=== PATIENT | female | born 1950 | race Caucasian/White ===

== ENCOUNTER → 2016-05-12 | Outpatient (CLI) | payer MEDICARE, MEDICAID ==
[~2016-05-12] MED LIST: ALEVE 220MG220 MG PO; ASPIRIN 81M81 MG/TA2 PO; CALCIUM 600 PLU1 TAB PO; CHANTIX START M1 TAB PO; FE-TABS325 MG PO; FLAX SEED OIL1000 MG PO; FOLIC ACID0.4 MG PO; LEVAQUIN 5500 MG/TA1 PO; LIPITOR 40MG TA40 MG PO; NORVIR PO; PLAVIX 75MG TAB75 MG PO; PRINIVIL5 MG PO; PROZAC 20MG20 MG PO; REYATAZ PO; STRIBILD1 TAB PO; TOPROL XL 25MG25 MG PO; TRUVADA PO; ULTRAM50 MG PO; VITAMIN C PURE500 MG PO
[2016-05-12 12:16] LABS: HEMATOCRIT 41.4 % (37.0-47.0); HEMOGLOBIN 13.6 g/dl (12.5-16.0); MEAN CELL VOLUME 99 fl (80.0-100.0); MEAN CORPUSCULAR HEMOGLOBIN 33 pg (27.0-31.0); MEAN CORPUSCULAR HGB CONC 33 g/dl (33.0-37.0); MEAN PLATELET VOLUME 9.3 fl (7.4-10.4); PLATELET COUNT 260 K/mm3 (130-400); RED BLOOD COUNT 4.18 M/mm3 (4.10-5.30); REDCELL DISTRIBUTION WIDTH-CV 14.5 % (11.5-14.5); WHITE BLOOD COUNT 7.7 K/mm3 (4.8-10.8)
[2016-05-12 12:41] LABS: ERYTHROCYTE SEDIMENTATION RATE 4 mm/hr (0-30)
== END ==
LOC: COL.LAB 11:19
PROVIDERS: Orthopaedic Surgery
DX: M25.551 Pain in right hip (principal); Z98.890 Other specified postprocedural states

== ENCOUNTER 2016-07-21 08:10 | Observation (INO) | payer MEDICARE, MEDICAID ==
[2016-07-21] VITALS (645 sets, daily range): BP systolic 102–121; BP diastolic 62–72; PULSE 95–109; TEMP 97.7–98.3; O2SAT 68–100
[~2016-07-21] VITALS: Ht 167.6 cm; Wt 67.8 kg
[~2016-07-21 08:10] MED LIST changes: -ASPIRIN 81M81 MG/TA2 PO; -CALCIUM 600 PLU1 TAB PO; -LIPITOR 40MG TA40 MG PO; -PLAVIX 75MG TAB75 MG PO; -STRIBILD1 TAB PO; -TOPROL XL 25MG25 MG PO
[2016-07-21 08:52] LABS: BASO % 0.2 % (0.0-2.0); EOS # 0.1 (0.0-0.7); EOS % 0.6 % (0-4.0); GRAN # 6.4 (1.4-6.5); GRAN % 75.6 % (42.2-75.2); HEMATOCRIT 41.8 % (37.0-47.0); HEMOGLOBIN 13.6 g/dl (12.5-16.0); LYMPH # 1.3 (1.2-3.4); LYMPH % 15.1 % (20.0-51.0); MEAN CELL VOLUME 100 fl (80.0-100.0); MEAN CORPUSCULAR HEMOGLOBIN 32 pg (27.0-31.0); MEAN CORPUSCULAR HGB CONC 33 g/dl (33.0-37.0); MEAN PLATELET VOLUME 9.6 fl (7.4-10.4); MONO # 0.7 (0.1-0.6); PLATELET COUNT 164 K/mm3 (130-400); REDCELL DISTRIBUTION WIDTH-CV 14.5 % (11.5-14.5); WHITE BLOOD COUNT 8.4 K/mm3 (4.8-10.8)
[2016-07-21 08:55] LABS: ADJUSTED CALCIUM 9.1 mg/dL (8.4-10.2); ALBUMIN 4.3 gm/dL (3.5-5.0); BILIRUBIN,TOTAL 0.8 mg/dL (0.0-1.0); C-REACTIVE PROTEIN 0.9 mg/dL (0.0-0.9); CALCIUM 9.3 mg/dL (8.4-10.2); CREATININE, serum 1.75 mg/dL (0.52-1.25); POTASSIUM 3.9 mmol/L (3.4-5.0); TOTAL PROTEIN 7.5 gm/dL (6.4-8.2)
[2016-07-21 09:06] LABS: TROPONIN-I 0.102 ng/mL (0.000-0.034)
[2016-07-21 09:41] LABS: INR 1.1 (0.8-3.0)
[2016-07-21 09:44] LABS: PARTIAL THROMBOPLASTIN TIME 30.3 SECONDS (26.0-37.0)
[2016-07-21] MEDS ORDERED: STRIBILD1 TAB PO (12:35)
[2016-07-21] MEDS ORDERED: CALCIUM 600 PLU1 TAB PO (12:35)
[2016-07-21 17:29] LABS: CALCIUM 8.5 mg/dL (8.4-10.2); CREATININE, serum 1.48 mg/dL (0.52-1.25); POTASSIUM 3.8 mmol/L (3.4-5.0)
[2016-07-22] VITALS (512 sets, daily range): BP systolic 99–122; BP diastolic 54–74; PULSE 81–98; TEMP 97.1–98.7; O2SAT 72–100
[2016-07-22 06:49] LABS: TROPONIN-I 0.353 ng/mL (0.000-0.034)
[2016-07-22 08:54] LABS: ADJUSTED CALCIUM 9.2 mg/dL (8.4-10.2); ALBUMIN 3.6 gm/dL (3.5-5.0); BILIRUBIN,TOTAL 0.7 mg/dL (0.0-1.0); CALCIUM 8.9 mg/dL (8.4-10.2); CREATININE, serum 1.68 mg/dL (0.52-1.25); TOTAL PROTEIN 6.7 gm/dL (6.4-8.2)
[2016-07-22] MEDS ORDERED: PLAVIX 75MG TAB75 MG PO (11:48)
[2016-07-22] MEDS ORDERED: LIPITOR 40MG TA40 MG PO (11:48)
[2016-07-22] MEDS ORDERED: TOPROL XL 25MG25 MG PO (11:49)
[2016-07-22] MEDS ORDERED: ASPIRIN 81M81 MG/TA2 PO (11:50)
== END 2016-07-22 12:50 | disposition home or self-care (01) ==
LOC: COL.ER 08:10 → ICU 09:57 → IMCU 07-22 07:32
PROVIDERS: Emergency Medicine
DX: R07.89 Other chest pain (principal); I25.10 Atherosclerotic heart disease of native coronary artery without angina pectoris; I27.2 Other secondary pulmonary hypertension; R94.4 Abnormal results of kidney function studies; J43.9 Emphysema, unspecified; I07.1 Rheumatic tricuspid insufficiency; B20 Human immunodeficiency virus [HIV] disease; F17.210 Nicotine dependence, cigarettes, uncomplicated; D68.2 Hereditary deficiency of other clotting factors; Z86.711 Personal history of pulmonary embolism; Z86.718 Personal history of other venous thrombosis and embolism
CPT/HCPCS: 99222-AI; 99232-AI; 99239; G0378; J1650; J7030

== ENCOUNTER → 2016-11-08 | Outpatient (CLI) | payer MEDICARE, MEDICAID ==
[~2016-11-08] MED LIST changes: +ASPIRIN 81M81 MG/TA2 PO; +CALCIUM 600 PLU1 TAB PO; +LIPITOR 40MG TA40 MG PO; +PLAVIX 75MG TAB75 MG PO; +STRIBILD1 TAB PO; +TOPROL XL 25MG25 MG PO
[2016-11-08 15:45] LABS: HEMATOCRIT 38.7 % (37.0-47.0); HEMOGLOBIN 12.5 g/dl (12.5-16.0); MEAN CELL VOLUME 100 fl (80.0-100.0); MEAN CORPUSCULAR HEMOGLOBIN 32 pg (27.0-31.0); MEAN CORPUSCULAR HGB CONC 32 g/dl (33.0-37.0); MEAN PLATELET VOLUME 9.4 fl (7.4-10.4); PLATELET COUNT 253 K/mm3 (130-400); RED BLOOD COUNT 3.87 M/mm3 (4.10-5.30); REDCELL DISTRIBUTION WIDTH-CV 14.7 % (11.5-14.5); WHITE BLOOD COUNT 9.8 K/mm3 (4.8-10.8)
[2016-11-08 15:51] LABS: CALCIUM 9.1 mg/dL (8.4-10.2); CREATININE, serum 1.76 mg/dL (0.52-1.25); POTASSIUM 4.2 mmol/L (3.4-5.0)
== END ==
LOC: COL.LAB 15:21
PROVIDERS: Internal Medicine Interventional Cardiology
DX: R60.0 Localized edema (principal)

== ENCOUNTER 2017-06-16 09:59 | Emergency (ER) | payer MEDICARE, MEDICAID ==
[~2017-06-16] VITALS: Ht 167.6 cm; Wt 65.9 kg
[2017-06-16] MEDS ORDERED: PRADAXA 150MG150 MG PO (10:26)
[2017-06-16] MEDS ORDERED: CRESTOR 10MG10 MG PO (10:27)
[2017-06-16] MEDS ORDERED: ULTRAM 50MG TAB50 MG PO (11:10)
[2017-06-16] MEDS ORDERED: MEDROL 4MG DOSPA4 MG PO (11:10)
[2017-06-16 11:58] VITALS: BP 111/62; PULSE 46; TEMP 98.3
== END 2017-06-16 12:00 | disposition home or self-care (01) ==
LOC: COL.ER 09:59
DX: M54.10 Radiculopathy, site unspecified (principal); F17.210 Nicotine dependence, cigarettes, uncomplicated; Z86.711 Personal history of pulmonary embolism; Z86.718 Personal history of other venous thrombosis and embolism; Z95.820 Peripheral vascular angioplasty status with implants and grafts; Z90.710 Acquired absence of both cervix and uterus; Z96.641 Presence of right artificial hip joint; Z79.82 Long term (current) use of aspirin; Z79.01 Long term (current) use of anticoagulants
CPT/HCPCS: J7512

== ENCOUNTER → 2020-01-14 | Outpatient (CLI) | payer MEDICARE, MEDICAID ==
[~2020-01-14] MED LIST changes: +CRESTOR 10MG10 MG PO; +MEDROL 4MG DOSPA4 MG PO; +PRADAXA 150MG150 MG PO; +ULTRAM 50MG TAB50 MG PO
[2020-01-14 13:22] LABS: TROPONIN-I < 0.012 ng/mL (0.000-0.035)
== END ==
LOC: ZCOL.LAB 11:30
PROVIDERS: Internal Medicine Interventional Cardiology
DX: R07.89 Other chest pain (principal)

== ENCOUNTER 2020-10-07 17:02 | Day surgery (SDC) | payer MEDICARE, MEDICAID ==
[2020-10-07 17:51] VITALS: BP 119/63; PULSE 80; TEMP 98.4
[2020-10-07 18:32] LABS: CALCIUM 9.8 mg/dL (8.4-10.2); CREATININE, serum 1.79 (0.52-1.25); POTASSIUM 3.9 mmol/L (3.4-5.0)
[2020-10-07] MEDS ORDERED: ZESTRIL2.5 MG PO (18:55)
[2020-10-07] MEDS ORDERED: FOSAMAX 70MG TA70 MG PO (18:56)
[2020-10-07] MEDS ORDERED: ELIQUIS 2.5 PO (18:56)
[2020-10-07] MEDS ORDERED: SODIUM BICARBO650 MG PO (18:57)
[2020-10-07] MEDS ORDERED: STRIBILD1 TAB PO (18:58)
[2020-10-07] MEDS ORDERED: ONE-A-DAY ESSE1 EACH PO (18:59)
--- NOTE | 2020-10-07 19:02 | NUR ---
Admission assessment completed, alert/oriented, vital sign stsable, denies pain, heart RRR, cardiology orders being placed in computer, meds/allergies/pharmacuy reviewed, IV started to left wrist, family present in the room
[2020-10-07 19:20] VITALS: BP 121/58; PULSE 61; TEMP 98.4
[2020-10-07 23:25] VITALS: BP 92/75; PULSE 62; TEMP 97.9
[2020-10-08] VITALS (9 sets, daily range): BP systolic 98–122; BP diastolic 54–59; PULSE 51–81; TEMP 97.8–98.2
[2020-10-08 06:09] LABS: HEMATOCRIT 37.5 % (37.0-47.0); HEMOGLOBIN 12.2 g/dl (12.5-16.0); MEAN CELL VOLUME 99 fl (80.0-100.0); MEAN CORPUSCULAR HEMOGLOBIN 32 pg (27.0-31.0); MEAN CORPUSCULAR HGB CONC 33 g/dl (33.0-37.0); MEAN PLATELET VOLUME 9.9 fl (7.4-10.4); PLATELET COUNT 196 K/mm3 (130-400); RED BLOOD COUNT 3.78 M/mm3 (4.10-5.30); REDCELL DISTRIBUTION WIDTH-CV 13.7 % (11.5-14.5)
[2020-10-08 06:20] LABS: CALCIUM 9.1 mg/dL (8.4-10.2); CREATININE, serum 1.73 (0.52-1.25); POTASSIUM 4.2 mmol/L (3.4-5.0)
[2020-10-08 06:27] LABS: PROTHROMBIN TIME 11.4 SECONDS (9.7-12.8)
[2020-10-08 06:29] LABS: PARTIAL THROMBOPLASTIN TIME 28.4 SECONDS (26.0-37.0)
--- NOTE | 2020-10-08 07:00 | NUR ---
Report received from JAROCHO Ortiz. pT in bed, awake and alert, deneis needs, will contineu to monitor.
[2020-10-08] MEDS ORDERED: GENVOYA TABLET1 EACH PO (08:42)
--- NOTE | 2020-10-08 09:05 | NUR ---
Assessment charted. PT in bed resting, denies any chest pain, complete consent at this time, pt agreeable to plan. Called EDDIE Martel for RANP regarding home meds needing to be continued. IVF to LW. Will continue eduardo onitor.
[2020-10-08] MEDS ORDERED: LOPRESSOR 225 MG/TAB PO (11:26)
[2020-10-08] MEDS ORDERED: PRINIVIL2.5 MG PO (11:27)
--- NOTE | 2020-10-08 11:40 | NUR ---
This RN prepping pt for upcoming heart cath scheduled for 1230. This RN calling MD and speaking with MD's RN to notify that pt ready. MD currently unavailable. This RN requesting that MD call when ready for pt to be brought to labor gang supervisor for procedure. MD's RN states she will give this message to MD.
--- NOTE | 2020-10-08 13:22 | NUR ---
SEE MERGE DOCUMENTATION FOR MEDICATION ADMINISTRATION TIMES AND INTRA/POST PROCEDURE SEDATION ASSESSMENTS.
--- NOTE | 2020-10-08 14:00 | NUR ---
Heart cath complete. Order from MD for fluids to run at 100mL/hr for total of 500 mLs post procedure. Order also received for pt flat time to be 2hrs. Both orders read back and verified with the MD. These were relayed to JAROCHO Godoy on Medical.
--- NOTE | 2020-10-08 18:04 | NUR ---
Pt returned to floor at this time via bed with Rehab Manager staff. Resting flat in bed, instructed not to lift head at all and pt agreeable to plan. Ordered finger food per request. R groin access is soft and non-tender, CDI dressing, will continue to monitor.
[2020-10-08] MEDS ORDERED: ASPIRIN 81M81 MG/TA2 PO (18:09)
--- NOTE | 2020-10-08 18:45 | NUR ---
Discharge teaching completed at this time. PT received discharge packet, reviewed meds and follow ups. INT dc'd, tip intact. Reviewed packet, answered all questions. Pt left with all belongings, escorted out with medical staff, daughter to drive home, criteria met.
== END 2020-10-08 18:30 | disposition home or self-care (01) ==
LOC: SDCO 17:02 → MEDICAL 17:02 → COL.CAR 10-08 10:30 → EDSTATUS 10-08 10:30 → SDCO 10-08 18:30
PROVIDERS: Internal Medicine Interventional Cardiology
DX: R07.89 Other chest pain (principal); N18.30 Chronic kidney disease, stage 3 unspecified; I83.813 Varicose veins of bilateral lower extremities with pain; R94.39 Abnormal result of other cardiovascular function study; I87.1 Compression of vein; I26.99 Other pulmonary embolism without acute cor pulmonale; F17.210 Nicotine dependence, cigarettes, uncomplicated; Z79.899 Other long term (current) drug therapy; Z79.01 Long term (current) use of anticoagulants; Z86.718 Personal history of other venous thrombosis and embolism; Z80.9 Family history of malignant neoplasm, unspecified; Z90.710 Acquired absence of both cervix and uterus; Z79.891 Long term (current) use of opiate analgesic
CPT/HCPCS: OP; C1760; C1894; J1644; J1940; J2250; J3010; Q9967

== ENCOUNTER 2021-05-02 10:57 | Emergency (ER) | payer MEDICARE, MEDICAID ==
[~2021-05-02] VITALS: Ht 167.6 cm; Wt 72.7 kg
[~2021-05-02 10:57] MED LIST changes: +ELIQUIS 2.5 PO; +FOSAMAX 70MG TA70 MG PO; +GENVOYA TABLET1 EACH PO; +LOPRESSOR 225 MG/TAB PO; +ONE-A-DAY ESSE1 EACH PO; +PRINIVIL2.5 MG PO; +SODIUM BICARBO650 MG PO; +ZESTRIL2.5 MG PO
[2021-05-02 14:11] LABS: COLLECTION METHOD CLEAN CATCH
[2021-05-02 14:15] LABS: BASO % 0.3 % (0.0-2.0); GRAN % 76.7 % (42.2-75.2); LYMPH # 1.2 K/mm3 (1.2-3.4); LYMPH % 11.8 % (20.0-51.0); MEAN CELL VOLUME 96 fl (80.0-100.0); MEAN CORPUSCULAR HEMOGLOBIN 31 pg (27-31); MEAN CORPUSCULAR HGB CONC 33 g/dl (33.0-37.0); MEAN PLATELET VOLUME 10.8 fl (7.4-10.4); MONO # 1.1 K/mm3 (0.1-0.6); MONO % 10.9 % (1.7-9.3); PLATELET COUNT 143 K/mm3 (130-400); RED BLOOD COUNT 4.15 M/mm3 (4.10-5.30); REDCELL DISTRIBUTION WIDTH-CV 14.7 % (11.5-14.5)
[2021-05-02 14:18] LABS: MUCOUS Present (NOT PRESENT); PH 5 (5-8); SQUAMOUS EPITHELIAL 0-2 /hpf (0-10); URINE APPEARANCE Hazy (CLEAR/HAZY); URINE BACTERIA None Seen /hpf (NONE SEEN); URINE BILIRUBIN Negative (NEGATIVE); URINE BLOOD 1+ (NEGATIVE); URINE COLOR Yellow (YELLOW); URINE GLUCOSE 1+ (NEGATIVE); URINE KETONE Trace (NEGATIVE); URINE LEUKOCYTE ESTERASE Negative (NEGATIVE); URINE NITRATE Negative (NEGATIVE); URINE PROTEIN(semi-quant) 2+ (NEGATIVE); URINE UROBILINOGEN Negative (NEGATIVE)
[2021-05-02 14:29] LABS: ALBUMIN 3.7 gm/dL (3.4-4.8); BILIRUBIN,TOTAL 0.3 mg/dL (0.2-1.2); C-REACTIVE PROTEIN 9.7 mg/dL (0.00-0.50); CALCIUM 8.8 mg/dL (8.4-10.2); CREATININE, serum 1.92 mg/dL (0.57-1.11); POTASSIUM 3.7 mmol/L (3.5-4.5); TOTAL PROTEIN 7.6 gm/dL (6.2-8.1)
[2021-05-02] MEDS ORDERED: ZITHROMAX 250M250 MG PO (18:45)
[2021-05-02 19:30] VITALS: BP 128/69; PULSE 78; TEMP 98.3
== END 2021-05-02 19:30 | disposition home or self-care (01) ==
LOC: COL.ER 10:57
PROVIDERS: Nurse Practitioner
DX: J20.9 Acute bronchitis, unspecified (principal); R32 Unspecified urinary incontinence; I10 Essential (primary) hypertension; E78.5 Hyperlipidemia, unspecified; F17.210 Nicotine dependence, cigarettes, uncomplicated; Z79.899 Other long term (current) drug therapy; Z20.822 Contact with and (suspected) exposure to COVID-19

== ENCOUNTER → 2021-08-23 | Outpatient (CLI) | payer MEDICARE, MEDICAID ==
[~2021-08-23] MED LIST changes: +ZITHROMAX 250M250 MG PO
== END ==
LOC: COL.RAD 07:16
DX: Z01.818 Encounter for other preprocedural examination (principal); R91.8 Other nonspecific abnormal finding of lung field; J18.1 Lobar pneumonia, unspecified organism; J18.9 Pneumonia, unspecified organism; K76.0 Fatty (change of) liver, not elsewhere classified; K44.9 Diaphragmatic hernia without obstruction or gangrene; K21.9 Gastro-esophageal reflux disease without esophagitis; E04.1 Nontoxic single thyroid nodule; G31.9 Degenerative disease of nervous system, unspecified
CPT/HCPCS: Q9967

== ENCOUNTER 2022-01-06 18:22 | Emergency (ER) | payer MEDICARE, MEDICAID ==
[2022-01-06 18:27] VITALS: TEMP 98.1
[2022-01-06 18:33] LABS: BASO % 0.4 % (0.0-2.0); EOS # 0.1 K/mm3 (0.0-0.7); EOS % 1.4 % (0.0-4.0); GRAN # 4.7 K/mm3 (1.4-6.5); HEMATOCRIT 41.1 % (37.0-47.0); HEMOGLOBIN 13.8 g/dl (12.5-16.0); LYMPH # 2.1 K/mm3 (1.2-3.4); LYMPH % 26.4 % (20.0-51.0); MEAN CELL VOLUME 98 fl (80.0-100.0); MEAN CORPUSCULAR HEMOGLOBIN 33 pg (27-31); MEAN CORPUSCULAR HGB CONC 34 g/dl (33.0-37.0); MONO % 12.7 % (1.7-9.3); PLATELET COUNT 189 K/mm3 (130-400); RED BLOOD COUNT 4.18 M/mm3 (4.10-5.30)
[2022-01-06 18:57] LABS: ALBUMIN 3.8 gm/dL (3.4-4.8); BILIRUBIN,TOTAL 0.3 mg/dL (0.2-1.2); CALCIUM 9.9 mg/dL (8.4-10.2); CREATININE, serum 2.13 mg/dL (0.57-1.11); POTASSIUM 3.9 mmol/L (3.5-4.5); TOTAL PROTEIN 7.7 gm/dL (6.2-8.1)
[2022-01-06 19:05] LABS: TROPONIN-I 0.011 ng/mL (0.00-0.033)
[2022-01-06] MEDS ORDERED: PREDNISONE20 MG PO (19:20)
[2022-01-06 19:28] VITALS: BP 144/79; PULSE 102
== END 2022-01-06 19:33 | disposition home or self-care (01) ==
LOC: COL.ER 18:22
PROVIDERS: Emergency Medicine
DX: J44.1 Chronic obstructive pulmonary disease with (acute) exacerbation (principal); I12.9 Hypertensive chronic kidney disease with stage 1 through stage 4 chronic kidney disease, or unspecified chronic kidney disease; N18.9 Chronic kidney disease, unspecified; Z20.822 Contact with and (suspected) exposure to COVID-19
CPT/HCPCS: J2930

== ENCOUNTER 2022-01-09 19:38 | Emergency (ER) | payer MEDICARE, MEDICAID ==
[~2022-01-09] VITALS: Ht 167.6 cm; Wt 72.7 kg
[~2022-01-09 19:38] MED LIST changes: +PREDNISONE20 MG PO
[2022-01-09 19:40] VITALS: TEMP 98.9
[2022-01-09 20:48] VITALS: BP 122/67; PULSE 60
== END 2022-01-09 21:06 | disposition home or self-care (01) ==
LOC: COL.ER 19:38
DX: J44.1 Chronic obstructive pulmonary disease with (acute) exacerbation (principal); F17.210 Nicotine dependence, cigarettes, uncomplicated; Z88.2 Allergy status to sulfonamides

== ENCOUNTER 2022-04-18 16:28 | Inpatient (IN) | payer MEDICARE, MEDICAID ==
[~2022-04-18] VITALS: Ht 167.6 cm; Wt 70.3 kg
[2022-04-18 17:42] LABS: HEMOGLOBIN 11.4 g/dl (12.5-16.0); MEAN CELL VOLUME 96 fl (80.0-100.0); MEAN CORPUSCULAR HEMOGLOBIN 31 pg (27-31); MEAN CORPUSCULAR HGB CONC 33 g/dl (33.0-37.0); MEAN PLATELET VOLUME 9.7 fl (7.4-10.4); PLATELET COUNT 248 K/mm3 (130-400); RED BLOOD COUNT 3.64 M/mm3 (4.10-5.30); REDCELL DISTRIBUTION WIDTH-CV 15.1 % (11.5-14.5)
[2022-04-18 17:45] LABS: HEMATOCRIT 35.1 % (37.0-47.0)
[2022-04-18 17:52] LABS: COLLECTION METHOD CLEAN CATCH
[2022-04-18 18:00] LABS: URINE APPEARANCE Clear (CLEAR/HAZY); URINE COLOR Yellow (YELLOW)
[2022-04-18 18:01] LABS: PH 6.5 (5.0-8.5); URINE GLUCOSE TRACE (NEGATIVE); URINE KETONE 1+ (NEGATIVE); URINE NITRATE Negative (NEGATIVE); URINE PROTEIN(semi-quant) 3+ (NEGATIVE)
[2022-04-18 18:02] LABS: URINE BLOOD 1+ (NEGATIVE)
[2022-04-18 18:04] LABS: MUCOUS Present (NOT PRESENT); URINE BACTERIA None Seen /hpf (NONE SEEN); URINE RBC 0-2 /hpf (0-2)
[2022-04-18 18:05] LABS: ALANINE AMINOTRANSFERASE 12 U/L (0-55); ALBUMIN 2.5 gm/dL (3.4-4.8); ALKALINE PHOSPHATASE 131 U/L (40-150); ANION GAP 13 mmol/L (7-16); AST,SGOT 27 U/L (5-34); BILIRUBIN,TOTAL 0.6 mg/dL (0.2-1.2); BLOOD UREA NITROGEN 16 mg/dL (10-20); CALCIUM 8.9 mg/dL (8.4-10.2); CARBON DIOXIDE 19 mmol/L (23-31); CHLORIDE 109 mmol/L (98-107); CREATININE, serum 1.48 mg/dL (0.57-1.11); GLUCOSE 102 mg/dL (70-99); POTASSIUM 3.7 mmol/L (3.5-4.5); SODIUM 141 mmol/L (136-145); TOTAL PROTEIN 7.5 gm/dL (6.2-8.1)
[2022-04-18 18:07] LABS: C-REACTIVE PROTEIN 35.25 mg/dL (0.00-0.50); TROPONIN-I < 0.010 ng/mL (0.00-0.033)
[2022-04-18 18:26] LABS: BAND 2 % (0-10); LYMPHOCYTE 14 % (20.0-51.0); NEUTROPHILS 79 % (42.0-75.2); PLATELET ESTIMATE NORMAL (NORMAL)
[2022-04-18 18:27] LABS: ANISOCYTOSIS 1+; HYPOCHROMIA 1+
[2022-04-18] MEDS ORDERED: FOSAMAX 70MG TA70 MG PO (19:08)
[2022-04-18] MEDS ORDERED: LOPRESSOR 225 MG/TAB PO (19:09)
[2022-04-18] MEDS ORDERED: PROAIR HFA0.09 MG/AC IH (19:09)
[2022-04-18] MEDS ORDERED: GENVOYA TABLET1 EACH PO (19:09)
[2022-04-18] MEDS ORDERED: CRESTOR 10MG10 MG PO (19:10)
[2022-04-18] MEDS ORDERED: PROZAC 20MG20 MG PO (19:10)
[2022-04-18] MEDS ORDERED: ELIQUIS 2.5 PO (19:10)
[2022-04-18 20:30] VITALS: BP 124/83; PULSE 88; TEMP 98.1
--- NOTE | 2022-04-18 23:13 | NUR ---
2030 PT ARRIVED TO ROOM 308 ASSESSMENT COMPLETE AT THIS TIME. PT STATES HER KNEE IS SORE FROM HITTING IT WHEN SHE FELL BUT DENIES WANTING ANYTHING FOR PAIN. IV FLUIDS INFUSING, IV ABX ADMINISTERED PER MAR ALONG WITH OTHER MEDICATIONS.
[2022-04-19] VITALS (7 sets, daily range): BP systolic 102–119; BP diastolic 41–415; PULSE 62–121; TEMP 97.4–98.2
--- NOTE | 2022-04-19 05:05 | NUR ---
Vancomycin Initial Dosing Pharmacy Note Ordering provider: Jhonatan Mckeon MD Indication/duration: PNA x 7 days Relevant comorbidities: COPD, HTN, CKD, Chronic RF LABS: WBC = 16.2, SCr = 1.48 Recommendation: Will draw troughs and follow levels. Loading dose: 1.5 grams Maintenance dose: 1 gram every 24 hours Trough goal: 15-20 ug/mL
--- NOTE | 2022-04-19 06:14 | NUR ---
0614 PULMONARY CONSULT CALLED AND MESSAGE LEFT FOR ID CONSULT
[2022-04-19 06:50] LABS: HEMOGLOBIN 10.2 g/dl (12.5-16.0); MEAN CELL VOLUME 98 fl (80.0-100.0); MEAN CORPUSCULAR HEMOGLOBIN 32 pg (27-31); MEAN CORPUSCULAR HGB CONC 33 g/dl (33.0-37.0); MEAN PLATELET VOLUME 10.1 fl (7.4-10.4); PLATELET COUNT 235 K/mm3 (130-400); RED BLOOD COUNT 3.19 M/mm3 (4.10-5.30); REDCELL DISTRIBUTION WIDTH-CV 14.9 % (11.5-14.5)
[2022-04-19 06:53] LABS: CALCIUM 8.4 mg/dL (8.4-10.2); CREATININE, serum 1.24 mg/dL (0.57-1.11); POTASSIUM 3.7 mmol/L (3.5-4.5)
[2022-04-19 06:54] LABS: HEMATOCRIT 31.1 % (37.0-47.0)
[2022-04-19 07:22] LABS: BAND 6 % (0-10); LYMPHOCYTE 4 % (20.0-51.0); NEUTROPHILS 90 % (42.0-75.2); PLATELET ESTIMATE NORMAL (NORMAL)
[2022-04-19 07:23] LABS: BURR CELLS 1+; OVALOCYTES 1+
--- NOTE | 2022-04-19 09:30 | NUR ---
PATIENT ALERT, ORIENTED AND AWAKE. RESTING IN BED. NO NEEDS OR COMPLAINTS AT THIS TIME. PATIENT VOICED THAT SHE IS NOT READY FOR DISCHARGE SHE IS STILL TOO WEAK AND SOB.
--- NOTE | 2022-04-19 09:49 | NUR ---
Initial visit; Patient thanked Evp for looking in on her and keeping her in Evp's prayers. Evp offered God's blessings for a rapid and thorough recovery.
--- NOTE | 2022-04-19 14:40 | NUR ---
Econometrics Professor met with patient to discuss discharge planning. Patient lives alone in [place] and sees Dr. Catherine for primary care. Patient does remark that she has two dogs and three cats. Patient obtains medications from [facility] with no difficulties. Patient has three children: Benny (#[phone]), Raquel and Terry. Patient stated Benny is her DPOA-HC. Patient also has her granddaughter, Isabelle listed as a contact. Patient reports she has home oxygen but thinks her son may have ordered it through [employer] and not a [employer] company. Patient has a cane, walker, and shower chair at home. Patient reports independence with ADLS and advised her son is working on establishing some home help for cleaning and cooking. Patient plans to return home at this time. SW attempted to contact patient's son, Benny and left a message. Discharge Plan: Home
--- NOTE | 2022-04-19 18:00 | NUR ---
PATIENT ALERT AND AWAKE, RESTING IN BED. PATIENT DENIES ANY NEEDS OR COMPLAINTS AT THIS TIME. VANCO INFUSING. CALL LIGHT WITH IN REACH.
--- NOTE | 2022-04-19 18:20 | NUR ---
INFORMED PHARMACY PATIENTS GRANDDAUGHTER BROUGHT HER HOME HIV MED ([facility]). PLACED IN PATIENT SPECIFIC PHYSICAL SCIENCE TECHNICIAN MED ROOM. PER PHARMACY MD STILL HAS NOT PUT MED ORDER IN TO GIVE.
--- NOTE | 2022-04-19 19:17 | NUR ---
PT RESTING COMFORTABLY IN BED. CELL PHONE AND CALL LIGHT ARE AT PATIENTS SIDE. NO DISTRESS NOTED. NO VOICED CONCERNS. NO COMPLICATIONS. TOLERATED TREATMENT WELL. NO IMPROVEMENT NOTED S/P BREATHING TX. RT AND NAME WRITTEN ON BOARD. NOTIFIED PT OF NEXT BREATHING TREATMENT.
[2022-04-20 04:52] VITALS: BP 131/63; PULSE 69; TEMP 98
[2022-04-20 08:18] LABS: HEMOGLOBIN 10.5 g/dl (12.5-16.0); MEAN CELL VOLUME 95 fl (80.0-100.0); MEAN CORPUSCULAR HEMOGLOBIN 32 pg (27-31); MEAN CORPUSCULAR HGB CONC 34 g/dl (33.0-37.0); MEAN PLATELET VOLUME 10.2 fl (7.4-10.4); PLATELET COUNT 303 K/mm3 (130-400); RED BLOOD COUNT 3.28 M/mm3 (4.10-5.30); REDCELL DISTRIBUTION WIDTH-CV 15.1 % (11.5-14.5)
[2022-04-20 08:21] VITALS: BP 126/48; PULSE 62; TEMP 97.6
[2022-04-20 08:23] LABS: CALCIUM 9.2 mg/dL (8.4-10.2); CREATININE, serum 1.23 mg/dL (0.57-1.11); POTASSIUM 3.9 mmol/L (3.5-4.5)
[2022-04-20 11:46] VITALS: BP 110/65; PULSE 62; TEMP 97.4
[2022-04-20 16:49] VITALS: BP 118/55; PULSE 78; TEMP 97.7
[2022-04-20 20:05] VITALS: BP 124/49; PULSE 101; TEMP 97.5
[2022-04-21 01:13] VITALS: BP 123/54; PULSE 60; TEMP 97.5
[2022-04-21 04:50] VITALS: BP 117/50; PULSE 58; TEMP 97.5
[2022-04-21 07:04] LABS: HEMOGLOBIN 10.2 g/dl (12.5-16.0); MEAN CELL VOLUME 96 fl (80.0-100.0); MEAN CORPUSCULAR HEMOGLOBIN 32 pg (27-31); MEAN CORPUSCULAR HGB CONC 33 g/dl (33.0-37.0); MEAN PLATELET VOLUME 10.1 fl (7.4-10.4); PLATELET COUNT 318 K/mm3 (130-400); RED BLOOD COUNT 3.22 M/mm3 (4.10-5.30); REDCELL DISTRIBUTION WIDTH-CV 15.6 % (11.5-14.5)
[2022-04-21 07:10] LABS: HEMATOCRIT 30.9 % (37.0-47.0)
[2022-04-21 07:21] LABS: C-REACTIVE PROTEIN 6.68 mg/dL (0.00-0.50); CALCIUM 8.6 mg/dL (8.4-10.2); CREATININE, serum 1.36 mg/dL (0.57-1.11); MAGNESIUM 2.4 mg/dL (1.6-2.6); PHOSPHOROUS 2.9 mg/dL (2.3-4.7)
[2022-04-21 07:34] LABS: BAND 4 % (0-10); LYMPHOCYTE 7 % (20.0-51.0); NEUTROPHILS 89 % (42.0-75.2); OVALOCYTES 1+
[2022-04-21 07:35] LABS: PLATELET ESTIMATE NORMAL (NORMAL)
[2022-04-21 08:02] VITALS: BP 115/51; PULSE 60; TEMP 97.8
--- NOTE | 2022-04-21 09:30 | NUR ---
PT HAD BEEN ON 3 LPM NC. O2 OFF X 20 MINUTES, SPO2 83% O2 BACK ON @ 3 LPM SAT CLIMBING SLOWLY TO 89% O2 BUMPED UP TO 4 LPM WITH SPO2 90-91% @ REST
[2022-04-21] MEDS ORDERED: LEVAQUIN 750MG750 M1 PO (11:05)
[2022-04-21 11:07] VITALS: BP 118/45; PULSE 78; TEMP 97.8
[2022-04-21] MEDS ORDERED: PROAIR HFA0.09 MG/AC IH (11:08)
[2022-04-21] MEDS ORDERED: OXYGEN (11:30)
--- NOTE | 2022-04-21 14:45 | NUR ---
PATIENT GIVEN DISCHARGE INSTRUCTIONS AND EDUCATION. ALL QUESTIONS ANSWERED. IV AND TELE REMOVED.
--- NOTE | 2022-04-21 15:10 | NUR ---
PATIENT TAKEN VIA WHEELCHAIR BY PCT TO ER ENTRANCE WHERE SE WAS PICKED UP BY HER FAMIL MEMBER. PATIENT LEFT IN STABLDE CONDITION.
--- NOTE | 2022-04-21 16:28 | NUR ---
Compensation And Benefits Analyst met with patient who is being discharged home today. Patient is in need of home oxygen and will need it ordered through [facility] as the supplies she has at home were ordered from [employer]. [facility] it [facility]. SW contacted Austin at [facility] and faxed referral and script. Tanks delivered to patient's room and concentrator to be delivered to the home.
--- NOTE | 2022-04-25 10:00 | NUR ---
Case Management received a phone call from patient advising that patient is still waiting on her concentrator to be delivered to her home. SW notified Graham at [facility] who stated he would take care of that today.
[2022-11-15] MEDS ORDERED: TYLENOL 500MG500 MG PO (12:28)
[2022-11-15] MEDS ORDERED: MULTI VITAMINS1 TAB PO (12:31)
[2022-11-16] MEDS ORDERED: OMNICEF 300MG300 MG PO (12:07)
[2022-11-16] MEDS ORDERED: ZITHROMAX500 M2 PO (12:08)
[2022-11-16] MEDS ORDERED: TESSALON P100 MG/CAP PO (12:09)
[2022-11-16] MEDS ORDERED: MUCINEX DM 30 M1 TE1 PO (12:09)
[2023-02-16] MEDS ORDERED: ZITHROMAX Z PA250 MG PO (16:09)
[2023-02-16] MEDS ORDERED: AMOXICILLIN 8751 TAB PO (16:09)
== END 2022-04-21 15:15 | disposition home or self-care (01) | DRG 871 ==
LOC: COL.ER 16:28 → MEDICAL 18:30
PROVIDERS: Emergency Medicine; Nurse Practitioner Family; ADMIT Internal Medicine
DX: A41.9 Sepsis, unspecified organism (principal); J18.9 Pneumonia, unspecified organism; J96.21 Acute and chronic respiratory failure with hypoxia; D68.61 Antiphospholipid syndrome; E87.20 Acidosis, unspecified; D84.9 Immunodeficiency, unspecified; J44.1 Chronic obstructive pulmonary disease with (acute) exacerbation; J44.0 Chronic obstructive pulmonary disease with (acute) lower respiratory infection; D68.51 Activated protein C resistance; F32.A Depression, unspecified; E78.5 Hyperlipidemia, unspecified; N18.32 Chronic kidney disease, stage 3b; Z21 Asymptomatic human immunodeficiency virus [HIV] infection status; I27.20 Pulmonary hypertension, unspecified; I12.9 Hypertensive chronic kidney disease with stage 1 through stage 4 chronic kidney disease, or unspecified chronic kidney disease; I07.1 Rheumatic tricuspid insufficiency; R82.81 Pyuria; I25.10 Atherosclerotic heart disease of native coronary artery without angina pectoris; N39.3 Stress incontinence (female) (male); M81.0 Age-related osteoporosis without current pathological fracture; Z96.651 Presence of right artificial knee joint; D64.9 Anemia, unspecified; Z90.710 Acquired absence of both cervix and uterus; Z88.2 Allergy status to sulfonamides; Z88.8 Allergy status to other drugs, medicaments and biological substances; Z99.81 Dependence on supplemental oxygen; Z85.828 Personal history of other malignant neoplasm of skin; Z86.718 Personal history of other venous thrombosis and embolism; Z86.711 Personal history of pulmonary embolism; Z79.01 Long term (current) use of anticoagulants; Z87.891 Personal history of nicotine dependence; Z23 Encounter for immunization
CPT/HCPCS: J0692; J0696; J2920; J2930; J3370; J7030; J7050; Q9967

== ENCOUNTER 2022-07-19 06:50 | Day surgery (SDC) | payer MEDICARE, MEDICAID ==
[~2022-07-19] VITALS: Ht 167.6 cm; Wt 67.6 kg
[~2022-07-19 06:50] MED LIST changes: +LEVAQUIN 750MG750 M1 PO; +OXYGEN; +PROAIR HFA0.09 MG/AC IH
[2022-07-19 07:08] VITALS: BP 125/58; PULSE 66; TEMP 97.2
[2022-07-19] MEDS ORDERED: TRELEGY ELLIPT1 EAC1 IH (07:16)
[2022-07-19 08:55] VITALS: BP 120/47; PULSE 72; TEMP 98.1
[2022-07-19 09:10] VITALS: BP 116/60; PULSE 74
[2022-07-19 09:20] VITALS: BP 112/60; PULSE 68
--- NOTE | 2022-07-19 09:30 | NUR ---
0855 RETURNS TO ROOM 8 PER CART. AWAKE, ALERT. RESP UNLABORED AT REST. O2 OFF. HOB ELEVATED 60 DEGREES. OCCASIONAL MOIST, NON PRODUCTIVE COUGH. DENIES DYSPNEA. CALL LIGHT AT SIDE. SON AND GRANDDAUGHTER IN ROOM. 0900 TOLERATES WATER WITHOUT NAUSEA. COUGH LESS FREQUENT. DISCHARGE INSTRUCTIONS REVIEWED. PATIENT AND FAMILY VERBALIZE UNDERSTANDING. COPY PROVIDED IN DISCHARGE FOLDER 0915 SITS ON EDGE OF BED. DRESSES SELF. 0922 LAB HERE TO DRAW SPECIMEN 0930 DISCHARGED PER WHEELCHAIR. TRANSFERS WITH STABDBY ASSIST TO PASSENGER SEAT OF SON'S VEHICLE. SEAT BELT ON
[2022-07-19 11:15] VITALS: BP 120/47; PULSE 72
[2022-07-21 00:37] LABS: TB GOLD INTERPRETATION Negative (Negative)
== END 2022-07-19 09:30 | disposition home or self-care (01) ==
LOC: SDCO 06:50
PROVIDERS: Student in an Organized Health Care Education/Training Program
DX: R91.8 Other nonspecific abnormal finding of lung field (principal); R06.02 Shortness of breath; I27.20 Pulmonary hypertension, unspecified; J44.9 Chronic obstructive pulmonary disease, unspecified; Z21 Asymptomatic human immunodeficiency virus [HIV] infection status; Z87.891 Personal history of nicotine dependence; Z87.01 Personal history of pneumonia (recurrent)
CPT/HCPCS: J2704; J7120

== ENCOUNTER 2023-02-16 17:51 | Inpatient (IN) | payer MEDICARE, MEDICAID ==
[~2023-02-16] VITALS: Ht 167.6 cm; Wt 70.5 kg
--- NOTE | 2023-02-16 11:40 | NUR ---
PATIENT PLACED ON 3L OF OXYGEN PER RESPIRATORY. PATIENT STATES SHE USES O2 AT NIGHT AND PRN DURING THE DAY AT HOME.
[~2023-02-16 17:51] MED LIST changes: -CALCIUM 600MG+D1 TAB PO; -ELIQUIS 5MG PO; -MUCINEX 60600 MG/TA1 PO
[2023-02-16] MEDS ORDERED: FOSAMAX 70MG TA70 MG PO (20:38)
[2023-02-16] MEDS ORDERED: PROAIR HFA0.09 MG/AC IH (20:39)
[2023-02-16] MEDS ORDERED: TRELEGY ELLIPT1 EAC1 IH (20:39)
[2023-02-16] MEDS ORDERED: MUCINEX 60600 MG/TA1 PO (20:41)
[2023-02-16] MEDS ORDERED: CALCIUM 600MG+D1 TAB PO (20:42)
[2023-02-16 21:41] VITALS: BP 152/70; PULSE 67
--- NOTE | 2023-02-16 21:49 | NUR ---
PATIENT ARRIVED FROM ED. TALKING ON CELLPHONE. ALERT AND ORIENTED.
--- NOTE | 2023-02-16 22:30 | NUR ---
PATIENT SITTING UP IN BED. ALERT AND ORIENTED. ADMISSION ASSESSMENT COMPLETED. COURSE CRACKLES NOTED TO RIGHT LOWER LOBE. RESPIRATIONS ARE UNLABORED. PATIENT DOES HAVE A PRODUCTIVE COUGH. AWAITING COVID AND FLU RESULTS. CONTACT/DROP PRECAUTIONS IN PLACE. PAITENT IS VERY WEAK AND UNABLE TO TRANSFER INDEPENDENTLY. FALL PRECAUTIONS IN PLACE. PATIENT IS ORIENTED TO OWN ABILITY. CALL LIGHT WITHIN REACH.
[2023-02-16 23:31] VITALS: BP 156/58; PULSE 85; TEMP 97.7
[2023-02-17] VITALS (8 sets, daily range): BP systolic 125–149; BP diastolic 58–67; PULSE 70–112; TEMP 97.7–98.3
[2023-02-17 05:39] LABS: MEAN CELL VOLUME 106 fl (80.0-100.0); MEAN CORPUSCULAR HGB CONC 34 g/dl (33.0-37.0); MEAN PLATELET VOLUME 10.1 fl (7.4-10.4); PLATELET COUNT 116 K/mm3 (130-400); RED BLOOD COUNT 2.72 M/mm3 (4.10-5.30); REDCELL DISTRIBUTION WIDTH-CV 14.6 % (11.5-14.5)
[2023-02-17 05:46] LABS: HEMATOCRIT 28.7 % (37.0-47.0); HEMOGLOBIN 9.7 g/dl (12.5-16.0); MEAN CORPUSCULAR HEMOGLOBIN 36 pg (27-31)
[2023-02-17 05:56] LABS: CALCIUM 8.4 mg/dL (8.4-10.2); CREATININE, serum 0.92 mg/dL (0.57-1.11); POTASSIUM 4.5 mmol/L (3.5-4.5)
[2023-02-17 06:49] LABS: BAND 2 % (0-10); LYMPHOCYTE 6 % (20.0-51.0); NEUTROPHILS 90 % (42.0-75.2); NUCLEATED RED BLOOD CELL 1 (0-6); OVALOCYTES 1+; PLATELET ESTIMATE NORMAL (NORMAL)
--- NOTE | 2023-02-17 08:00 | NUR ---
Patient is resting in bed, alert and oriented x 4, states she did not have a good rest at night, people coming and going. Getting 3L O2 NC. Telemetry in place HR 100's. Getting LR at 100 ml/hr. Assessment completed, meds provided. No further needs at this time. Call light within reach.
--- NOTE | 2023-02-17 12:16 | NUR ---
SW met with pt to complete intake. Pt reports she is independent with ADLs, but use a walker, cane and 2L of o2 at night. o2 comes from [facility]. PCP is Dr. Catherine and gets medications from [facility]. Pt reports she would like HH services. SW provided pt with [email or web address] list of HH services. [facility], @ [phone]. SELVIN await for further recommendations and follow up as needed. DC: Home.
--- NOTE | 2023-02-17 18:24 | NUR ---
Patient is resting in bed, watching TV, continues with 3L O2 NC. No heart problems, continues with weakness. Report will be given to night RN.
[2023-02-18] VITALS (12 sets, daily range): BP systolic 123–133; BP diastolic 54–87; PULSE 68–96; TEMP 98–98.6
--- NOTE | 2023-02-18 06:01 | NUR ---
Assessment completed at 2014. A&Ox4. BG checked at 2100 and patient refused to received her insulin. RFA INT is CDI. Pt is on O2 at 2L per NC. Purewick in place. All medications were given. Pt reports continue feeling weakness on her lower extremities. Belongings and call light are within reach.
[2023-02-18 07:41] LABS: MEAN CELL VOLUME 106 fl (80.0-100.0); MEAN CORPUSCULAR HGB CONC 33 g/dl (33.0-37.0); MEAN PLATELET VOLUME 9.5 fl (7.4-10.4); PLATELET COUNT 125 K/mm3 (130-400); RED BLOOD COUNT 2.75 M/mm3 (4.10-5.30); REDCELL DISTRIBUTION WIDTH-CV 14.5 % (11.5-14.5)
[2023-02-18 07:43] LABS: HEMOGLOBIN 9.6 g/dl (12.5-16.0); MEAN CORPUSCULAR HEMOGLOBIN 35 pg (27-31)
[2023-02-18 07:58] LABS: CALCIUM 8.4 mg/dL (8.4-10.2); CREATININE, serum 0.97 mg/dL (0.57-1.11); POTASSIUM 3.9 mmol/L (3.5-4.5)
[2023-02-18 08:24] LABS: BAND 1 % (0-10); LYMPHOCYTE 3 % (20.0-51.0); NEUTROPHILS 92 % (42.0-75.2); OVALOCYTES 1+; PLATELET ESTIMATE NORMAL (NORMAL)
--- NOTE | 2023-02-18 09:00 | NUR ---
Patient sitting up in bed, alert and oriented, asks about the use of insulin and why she has to take it, educated about treatment. Assessment completed, meds provided. No further needs at this time. Call light within reach.
[2023-02-19] VITALS (8 sets, daily range): BP systolic 116–137; BP diastolic 54–74; PULSE 68–81; TEMP 97.5–98.1
--- NOTE | 2023-02-19 07:00 | NUR ---
PT IS AXOX3. PT IS ON 2L NC WHICH IS HOME OXYGEN. PT IS SR ON TELE. PT IS WEAK AND USING A WALKER. PT STATES SHE HAS TWO WALKERS AND A CANE AT HOME. PT HAS CALL LIGHT WITHIN REACH AND INSTRUCTED TO CALL WITH ALL NEEDS.
[2023-02-19 07:05] LABS: MEAN CELL VOLUME 106 fl (80.0-100.0); MEAN CORPUSCULAR HGB CONC 33 g/dl (33.0-37.0); PLATELET COUNT 133 K/mm3 (130-400); RED BLOOD COUNT 2.82 M/mm3 (4.10-5.30); REDCELL DISTRIBUTION WIDTH-CV 14.4 % (11.5-14.5)
[2023-02-19 07:06] LABS: HEMOGLOBIN 9.8 g/dl (12.5-16.0); MEAN CORPUSCULAR HEMOGLOBIN 35 pg (27-31)
[2023-02-19 07:16] LABS: CALCIUM 8.4 mg/dL (8.4-10.2); CREATININE, serum 1.02 mg/dL (0.57-1.11); POTASSIUM 3.8 mmol/L (3.5-4.5)
[2023-02-19 07:59] LABS: BAND 1 % (0-10); LYMPHOCYTE 3 % (20.0-51.0); MYELOCYTE 1 % (0-0); NEUTROPHILS 89 % (42.0-75.2)
[2023-02-19 08:00] LABS: PLATELET ESTIMATE NORMAL (NORMAL)
[2023-02-19] MEDS ORDERED: ELIQUIS 5MG PO (09:04)
[2023-02-19] MEDS ORDERED: PREDNISONE20 MG PO (14:05)
--- NOTE | 2023-02-19 16:05 | NUR ---
IV AND TELE DC'D. DISCHARGE INSTRUCTIONS DISCUSSED WITH PT. DISCUSSED NEW MEDICATIONS AND FOLLOW UP APPOINTMENTS. ALL QUESTIONS ANSWERED. AWAITING RIDE.
--- NOTE | 2023-02-19 16:15 | NUR ---
PT WHEELED OUT FOR DISCHARGE BY [facility].
== END 2023-02-19 16:16 | disposition home or self-care (01) | DRG 871 ==
LOC: COL.ER 17:51 → MEDICAL 20:30
PROVIDERS: Nurse Practitioner Family; ADMIT Hospitalist
DX: A41.9 Sepsis, unspecified organism (principal); J18.9 Pneumonia, unspecified organism; J96.11 Chronic respiratory failure with hypoxia; J44.1 Chronic obstructive pulmonary disease with (acute) exacerbation; N39.0 Urinary tract infection, site not specified; N17.9 Acute kidney failure, unspecified; E87.20 Acidosis, unspecified; D68.51 Activated protein C resistance; D84.9 Immunodeficiency, unspecified; F17.200 Nicotine dependence, unspecified, uncomplicated; R65.20 Severe sepsis without septic shock; N18.9 Chronic kidney disease, unspecified; R73.9 Hyperglycemia, unspecified; D64.9 Anemia, unspecified; I12.9 Hypertensive chronic kidney disease with stage 1 through stage 4 chronic kidney disease, or unspecified chronic kidney disease; E78.5 Hyperlipidemia, unspecified; I07.1 Rheumatic tricuspid insufficiency; I27.20 Pulmonary hypertension, unspecified; Z86.718 Personal history of other venous thrombosis and embolism; Z79.01 Long term (current) use of anticoagulants; Z86.711 Personal history of pulmonary embolism; Z21 Asymptomatic human immunodeficiency virus [HIV] infection status
CPT/HCPCS: J0696; J2405; J2930; J7120; J7512

== ENCOUNTER → 2023-02-16 | Emergency (ER) | payer MEDICARE, MEDICAID ==
[~2023-02-16] VITALS: Ht 167.6 cm; Wt 70.5 kg
[~2023-02-16] MED LIST changes: +AMOXICILLIN 8751 TAB PO; +CALCIUM 600MG+D1 TAB PO; +ELIQUIS 5MG PO; +MUCINEX 60600 MG/TA1 PO; +MUCINEX DM 30 M1 TE1 PO; +MULTI VITAMINS1 TAB PO; +OMNICEF 300MG300 MG PO; +TESSALON P100 MG/CAP PO; +TRELEGY ELLIPT1 EAC1 IH; +TYLENOL 500MG500 MG PO; +ZITHROMAX Z PA250 MG PO; +ZITHROMAX500 M2 PO
[2023-02-16 15:39] LABS: BASO # 0.1 K/mm3 (0.0-0.2); BASO % 0.7 % (0.0-2.0); EOS % 0.1 % (0.0-4.0); GRAN # 11.1 K/mm3 (1.4-6.5); GRAN % 82.4 % (42.2-75.2); HEMOGLOBIN 12.1 g/dl (12.5-16.0); LYMPH # 0.7 K/mm3 (1.2-3.4); LYMPH % 4.8 % (20.0-51.0); MEAN CELL VOLUME 107 fl (80.0-100.0); MEAN CORPUSCULAR HEMOGLOBIN 35 pg (27-31); MEAN CORPUSCULAR HGB CONC 33 g/dl (33.0-37.0); MEAN PLATELET VOLUME 10.2 fl (7.4-10.4); MONO # 0.7 K/mm3 (0.1-0.6); PLATELET COUNT 162 K/mm3 (130-400); RED BLOOD COUNT 3.45 M/mm3 (4.10-5.30); REDCELL DISTRIBUTION WIDTH-CV 14.6 % (11.5-14.5)
[2023-02-16 15:43] LABS: HEMATOCRIT 36.8 % (37.0-47.0)
[2023-02-16 15:54] LABS: ALBUMIN 3.1 gm/dL (3.4-4.8); BILIRUBIN,TOTAL 0.5 mg/dL (0.2-1.2); CALCIUM 9.5 mg/dL (8.4-10.2); CREATININE, serum 1.42 mg/dL (0.57-1.11); TOTAL PROTEIN 6.6 gm/dL (6.2-8.1)
[2023-02-16 16:23] LABS: COLLECTION METHOD CLEAN CATCH
[2023-02-16 16:33] LABS: URINE APPEARANCE Hazy (CLEAR/HAZY); URINE BLOOD 1+ (NEGATIVE); URINE COLOR Yellow (YELLOW); URINE GLUCOSE 2+ (NEGATIVE); URINE KETONE TRACE (NEGATIVE); URINE NITRATE Positive (NEGATIVE); URINE PROTEIN(semi-quant) 2+ (NEGATIVE); URINE UROBILINOGEN 0.2 E.U/dL (0.2-1.0)
[2023-02-16 16:54] LABS: MUCOUS Present (NOT PRESENT); URINE BACTERIA Moderate /hpf (NONE SEEN); URINE RBC 0-2 /hpf (0-2)
[2023-02-16 17:13] VITALS: BP 108/79; PULSE 97; TEMP 98.1
== END ==
LOC: COL.ER 15:01
PROVIDERS: Family Medicine
DX: J18.9 Pneumonia, unspecified organism (principal); R00.0 Tachycardia, unspecified; F17.290 Nicotine dependence, other tobacco product, uncomplicated; Z88.2 Allergy status to sulfonamides; Z87.09 Personal history of other diseases of the respiratory system
CPT/HCPCS: J0696; J7030